=== PATIENT | female | born 1960 | race Caucasian/White ===

== ENCOUNTER → 2024-01-22 06:34 | Outpatient (REF) | payer BC, SELFPAY | LOC: RAD 06:34 | PROVIDERS: ATTENDING PHYSICIAN Nurse Practitioner Family; FAMILY PHYSICIAN Physician Assistant Medical | DX: K76.89 Other specified diseases of liver (principal) | CPT/HCPCS: 74177; Q9967 ==

== ENCOUNTER 2024-03-22 12:59 | Emergency (ER) | payer BC, SELFPAY ==
[2024-03-22 13:03] VITALS: BP 157/99; BMI 28.3
[2024-03-22 13:53] LABS: % Basophils 0.3 % (0-2); % Eosinophils 1.2 % (0-6); % Immature Granulocytes 0.6 % (0-0.5); % Lymphocytes 20.7 % (20.5-51.1); % Monocytes 9.2 % (1.7-9.3); Absolute Eosinophils 0.1 10^3/uL (0-0.7); Absolute Lymphocytes 1.4 10^3/uL (1.2-3.4); Absolute Monocytes 0.6 10^3/uL (0.1-0.6); Absolute Neutrophils 4.6 10^3/uL (1.4-6.5); Hematocrit 36.4 % (37.0-47.0); Hemoglobin 12.7 g/dL (12.0-16.0); Mean Corp Hgb Conc. 34.9 g/dL (33.0-37.0); Mean Corpuscular Hgb 30.2 pg (27.0-31.0); Mean Corpuscular Volume 86.5 fL (81.0-99.0); Mean Platelet Volume 10.2 fL (7.4-10.4); Nucleated Red Blood Cells % 0 %; Platelet Count 194 10^3/uL (130-400); Red Blood Cell Count 4.21 10^6/uL (4.20-5.40); Red Cell Dist. Width 12.8 % (11.5-14.5); White Blood Cell Count 6.7 10^3/uL (4.8-10.8)
[2024-03-22 13:55] LABS: ALT (SGPT) 49 U/L (0-35); AST (SGOT) 51 U/L (14-36); Albumin 4.5 g/dl (3.5-5.0); Alkaline Phosphatase 70 U/L (38-126); Blood Urea Nitrogen 14 mg/dl (7-17); Calcium 9.6 mg/dl (8.4-10.2); Carbon Dioxide 23 mmol/L (22-30); Chloride 106 mmol/L (98-107); Estimated Creatinine Clearance 61 ml/min; Glucose 93 mg/dl (70-99); Potassium 4.1 mmol/L (3.5-5.1); Sodium 138 mmol/L (135-145); Total Bilirubin 0.8 mg/dl (0.2-1.3); eGFR > 60.00
[2024-03-22 14:05] LABS: Troponin I < 0.012 ng/ml
[2024-03-22 14:10] LABS: COVID-19 Antigen Negative (Negative)
--- NOTE | 2024-03-22 14:50 | ED.GENMED ---
History of Present Illness
<Shelia Ayon PA-C - Last Filed: 03/22/24 21:38>
General
Chief Complaint: Cold/Flu/URI Symptoms
Source: patient
Exam Limitations: none
Time Seen by Provider: 03/22/24 14:50
Nursing documentation reviewed up to this point in time: agreed with
History of Present Illness
History of Present Illness:
This 64-year-old female with past medical history of giant cell arteritis, GERD, hypertension presenting the emergency department today with multiple complains. Patient reports that she has a history of giant cell arteritis and has been
experiencing bilateral temporal headaches recently as well as blurry vision. Patient states that her eyes feel fatigued. Patient states that she currently takes Actemra for her GCA. Patient states that she used to be on steroids for this condition
but has not had a course of steroids since October 2023. Patient also complains of shortness of breath for the past few weeks. Patient states that the shortness of breath is not exacerbated by exertion. She denies chest pain. Patient also states
that she feels as though she has had many episodes the past 2 weeks where she has felt hot and diaphoretic. Patient states that she did take her temperature at home and she did not have a fever. Patient denies coughing, sore throat. Patient
denies sick contacts. Patient denies any nausea or vomiting, abdominal pain. Patient follows with Dr. Pandya for rheumatology. Patient also notes significant urinary frequency recently and notes that she gets recurrent UTIs and is requesting a
urinalysis today. Patient denies any burning with urination, any hematuria, any flank parker.
Past History
<Shelia Ayon PA-C - Last Filed: 03/22/24 21:38>
Past History
ED Past Medical History: GERD and HTN
ED Past Surgical History: Gynecological and Tonsilectomy
Social History
Tobacco: Non-smoker
Alcohol: Occasional
Personal:
Living: with family
Employment: Employed
Family History
Family History: Hypertension
Review of Systems
<Shelia Ayon PA-C - Last Filed: 03/22/24 21:38>
Review of Systems
All Other Systems: ROS reviewed and negative except as documented in HPI and ROS
Phy Exam
<Shelia Ayon PA-C - Last Filed: 03/22/24 21:38>
Physical Exam
Physical Exam:
General: Patient is well appearing and in no acute distress; non-toxic
Skin: Warm and dry, no rashes or lesions
Head: Normocephalic, atraumatic. No temporal artery tenderness bilaterally.
Eyes: Sclera non-icteric. EOMs intact. PERRLA. No scleral injection bilaterally. Visual acuity 20/25 bilaterally with corrective glasses. Visual field testing intact bilaterally.
Cardiac: Regular rate and rhythm no murmurs
Peripheral Vascular: No lower extremity swelling or edema, no erythema
Pulm: Normal respiratory effort, no wheezes, rales, rhonchi
Abdomen: No abdominal tenderness to palpation
Neuro: CN II-XII intact, no focal neurologic deficits. Normal finger-nose, heel white testing.
Psychiatric: Appropriate mood and affect.
Course
<Shelia Ayon PA-C - Last Filed: 03/22/24 21:38>
Orders/Labs/Results
Orders:
Orders
03/22/24 13:07
Electrocardiogram (*1) Urgent
Reason for Study: Chest Pain
EKG- Treatment ONCE
CXR2 [CR Chest - 2 Views ] Urgent
Comment:
Reason For Exam: pain
03/22/24 13:19
C-Reactive Protein Urgent
Comment: ADD ON
COVID-19 Antigen Urgent
Source: Nasal Swab
Complete Blood Count/With Diff Urgent
Comprehensive Metabolic Panel Urgent
Erythrocyte Sed Rate Urgent
Comment: ADD ON
Troponin I Urgent
Influenza A+B Rapid Molecular Urgent
MOHINI Source: Nasal Swab
Specimen Description:
03/22/24 15:07
Add On- LAB Urgent
Tests Added?: CRP and ESR
03/22/24 17:27
Urinalysis Reflex To Culture Urgent
Date Specimen was Collected: 03/22/24
Time Specimen was Collected: 17:16
03/22/24 17:32
Cetirizine HCl [Zyrtec] 10 mg PO NOW STA
Abnormal Lab Results
03/22/24
13:19
Hct 36.4 L %
(37.0-47.0)
Immature Gran % 0.6 H %
(0-0.5)
AST 51 H U/L
(14-36)
ALT 49 H U/L
(0-35)
03/22/24 13:19
03/22/24 13:19
Vital Signs
Initial and Last Documented VS:
Initial Vital Signs
Temp Pulse Resp BP Pulse Ox
98.7 F 112 24 157/99 98
03/22/24 13:03 03/22/24 13:03 03/22/24 13:03 03/22/24 13:03 03/22/24 13:03
Last Documented Vital Signs
Temp Pulse Resp BP Pulse Ox
98.5 F 90 18 140/90 99
03/22/24 18:24 03/22/24 18:24 03/22/24 18:24 03/22/24 18:24 03/22/24 18:24
<Diony Levy, DO - Last Filed: 03/22/24 17:28>
Orders/Labs/Results
Orders:
Orders
03/22/24 13:07
Electrocardiogram (*1) Urgent
Reason for Study: Chest Pain
EKG- Treatment ONCE
CXR2 [CR Chest - 2 Views ] Urgent
Comment:
Reason For Exam: pain
03/22/24 13:19
C-Reactive Protein Urgent
Comment: ADD ON
COVID-19 Antigen Urgent
Source: Nasal Swab
Complete Blood Count/With Diff Urgent
Comprehensive Metabolic Panel Urgent
Erythrocyte Sed Rate Urgent
Comment: ADD ON
Troponin I Urgent
Influenza A+B Rapid Molecular Urgent
MOHINI Source: Nasal Swab
Specimen Description:
03/22/24 15:07
Add On- LAB Urgent
Tests Added?: CRP and ESR
03/22/24 17:27
Urinalysis Reflex To Culture Urgent
Date Specimen was Collected: 03/22/24
Time Specimen was Collected: 17:16
03/22/24 17:32
Cetirizine HCl [Zyrtec] 10 mg PO NOW STA
Abnormal Lab Results
03/22/24
13:19
Hct 36.4 L %
(37.0-47.0)
Immature Gran % 0.6 H %
(0-0.5)
AST 51 H U/L
(14-36)
ALT 49 H U/L
(0-35)
03/22/24 13:19
03/22/24 13:19
Vital Signs
Initial and Last Documented VS:
Initial Vital Signs
Temp Pulse Resp BP Pulse Ox
98.7 F 112 24 157/99 98
03/22/24 13:03 03/22/24 13:03 03/22/24 13:03 03/22/24 13:03 03/22/24 13:03
Last Documented Vital Signs
Temp Pulse Resp BP Pulse Ox
98.5 F 90 18 140/90 99
03/22/24 18:24 03/22/24 18:24 03/22/24 18:24 03/22/24 18:24 03/22/24 18:24
<Shelia Ayon PA-C - Last Filed: 03/22/24 21:38>
MDM/Problems Addressed
Differential Diagnosis Includes:
ddx include COVID-19 infection, pneumonia, GCA flair, tension headache, cluster headache, complex migraine
MDM/Problems Addressed:
Headache, blurry vision, shortness of breath:
This 64-year-old female with past medical history of giant cell arteritis, GERD, hypertension presenting the emergency department today with multiple complains. Patient reports that she has a history of giant cell arteritis and has been
experiencing bilateral temporal headaches recently as well as blurry vision. Patient feels like the headache is a bit different character than her GCA headaches, however she does feel it in the temporal areas. Patient states that her eyes feel
fatigued. Patient also complains of shortness of breath for the past few weeks. Here in the emergency department, she is well-appearing on exam, she does not have any temporal artery tenderness, her visual blake are intact, she her visual acuity
is 20/25 bilaterally with corrective lenses, and her ESR and CRP are within normal limits. Urinalysis is negative for infection. I reached out to pin chaser on-call who reports that considering patient's inflammatory markers are negative,
highly unlikely that this is a flare of GCA, however considering patient's history and considering her visual changes, rheumatology recommended covering with 3 mg of prednisone for a few days. Patient in agreement with plan. Patient will follow-up
with her pin chaser next week.
Chronic conditions affecting care:
oligive syndrome, migraine disorder, GCA
Acute Exacerbation and/or Progression of Chronic Illness:
GCA +/-
<Shelia Ayon PA-C - Last Filed: 03/22/24 21:38>
*Pulse Oximetry
Patient hypoxic: no
*Critical Care Note
Total Time (30-74mins, 75-104mins- exclusive of procedures): Not Applicable
Data Reviewed
Review of Other/Old Records Reveals: Records (Reviewed ER physician documentation from 04/23/2020 4-year-old patient was seen for headache)
Source: patient and records
Prescriptions/Medications Considered But Not Given:
considered medication for pain but patient states that she is somewhat comfortable at this time
<Shelia Ayon PA-C - Last Filed: 03/22/24 21:38>
Patient Management
Escalation/DeEscalation of care consider admission/obs:
Patient stable for discharge.
ED Attending Note
<Shelia Ayon PA-C - Last Filed: 03/22/24 21:38>
-
Portions of this chart may have been created with voice recognition software.� Occasional wrong word or��sound alike� substitutions may have occurred due to the inherent limitations of voice recognition software.
<Diony Levy DO - Last Filed: 03/22/24 17:28>
ED Attending Note
Patient seen and examined by attending physician: Yes
I performed the substantive portion of visit, reviewed & personally made and approve the management plan that is documented in note by myself or NALINI.: Yes
ED Attending Note:
I have seen and evaluated the patient with a [id number] encounter. I have spoken to the advance practicer provider and involved in the medical history, the physical exam, medical decision making.
Evaluation and management service: agree unless noted differently below.
Results interpretation: agree unless noted differently below.
Focused HPI: 64-year-old female presenting with mild headache, generalized weakness and mild visual complaints. Patient has a history of temporal arteritis. Although patient states her symptoms are much different and much milder than her prior
temporal arteritis flares, she wanted to get checked out to make sure she is not having a flareup. Patient is very hesitant about restarting steroids
Physical exam: Sitting in bed comfortably. EOMI. Lungs clear. No significant temporal artery discomfort
Medical Decision Making: Patient acknowledges that she was initially concerned this could be temporal arteritis. Once hearing that her ESR was normal, patient does not believe this is a temporal arteritis flareup. She believes she is having a
migraine. Will get rheumatology input
Discharge Plan
Departure
Patient Disposition: Home (Routine Discharge)
Date of Disposition: 03/22/24
Time of Disposition: 18:00
Patient with high blood pressure during this ER visit?: Yes
Condition: Good
Discharge Problem:
Acute tension headache, GCA (giant cell arteritis)
Instructions: Headache, Adult ED
Prescriptions:
New
prednisone 10 mg tablet
30 mg PO DAILY 4 Days Qty: 12 0RF
No Action
pantoprazole 40 MG tablet,delayed release (DR/EC)
40 mg PO DAILYPRN PRN (Reason: reflux)
losartan 25 mg Tablet
50 mg PO QPM
simvastatin 10 mg Tablet
10 mg PO DAILY
cranberry extract [Ellura] 200 mg Capsule
200 mg PO DAILY
prochlorperazine maleate [Compazine] 10 mg tablet
10 mg PO Q8H Qty: 10 0RF
Referrals:
Kiara Yoon PA [Family Provider] -
Activity Restrictions/Additional Instructions:
Starting tomorrow, please take 30 mg of prednisone once daily for 4 days. (This will likely come as 10 mg tablets--so you would need to take three tablets per day).
Please return to the emergency department should she experience acute visual loss, acute worsening of your headache, chest pain, dizziness, lightheadedness, or any other signs or symptoms concerning to you.
Please call your pin chaser office to schedule follow-up appointment.
Interventions
Interventions:
*Risk Screen - Suicide Last Done: 03/22/24 13:03
*Neglect/Abuse Screening Last Done: 03/22/24 13:03
*Nursing Disposition Last Done: 03/22/24 18:27
ED- Pulmonary Assessment Last Done: 03/22/24 15:57
Discharge Date and Time
Discharge Date/Time: 03/22/24 18:32
Print Language: ERITREAN
[2024-03-22 16:59] LABS: Erythrocyte Sed Rate 9 mm/hour (0-20)
[2024-03-22 17:43] LABS: Urine Albumin Negative (Neg - Trace); Urine Bilirubin Negative (Negative); Urine Character Clear (Clear); Urine Color Yellow; Urine Glucose Negative (Negative); Urine Ketone Negative (Negative); Urine Leukocyte Negative (Negative); Urine Nitrite Negative (Negative); Urine Occult Blood Negative (Negative); Urine Urobilinogen Negative (Neg - 1+)
[2024-03-22 17:53] LABS: C-Reactive Protein < 5.00 mg/L (0.0-10.00)
[2024-03-22 18:24] VITALS: BP 140/90
== END 2024-03-22 18:32 | disposition home or self-care (01) ==
LOC: EMR 12:59
PROVIDERS: EMERGENCY PHYSICIAN Student in an Organized Health Care Education/Training Program; FAMILY PHYSICIAN Physician Assistant Medical
DX: G44.209 Tension-type headache, unspecified, not intractable (principal); M31.6 Other giant cell arteritis; R53.1 Weakness; R06.02 Shortness of breath; R35.0 Frequency of micturition; Z11.52 Encounter for screening for COVID-19; K21.9 Gastro-esophageal reflux disease without esophagitis; I10 Essential (primary) hypertension; Z87.440 Personal history of urinary (tract) infections; Z88.1 Allergy status to other antibiotic agents; Z88.8 Allergy status to other drugs, medicaments and biological substances
CPT/HCPCS: 99283; 71046; 80053; 81003; 84484; 85025; 85652; 86140; 87502; 87811; 93005

== ENCOUNTER → 2024-05-13 08:48 | Outpatient (REF) | payer BC, SELFPAY | LOC: RAD 08:48 | PROVIDERS: ATTENDING PHYSICIAN Internal Medicine Cardiovascular Disease; FAMILY PHYSICIAN Physician Assistant Medical | DX: R06.09 Other forms of dyspnea (principal) | CPT/HCPCS: 71046 ==

== ENCOUNTER → 2024-05-22 07:13 | Outpatient (REF) | payer BC, SELFPAY | LOC: RCS 07:13 | PROVIDERS: ATTENDING PHYSICIAN Internal Medicine Cardiovascular Disease; FAMILY PHYSICIAN Physician Assistant Medical | DX: R06.09 Other forms of dyspnea (principal) | CPT/HCPCS: 93306 ==

== ENCOUNTER → 2024-06-06 07:46 | Outpatient (REF) | payer BC, SELFPAY | LOC: RCS 07:46 | PROVIDERS: ATTENDING PHYSICIAN Internal Medicine Cardiovascular Disease; FAMILY PHYSICIAN Physician Assistant Medical | DX: R06.09 Other forms of dyspnea (principal) | CPT/HCPCS: 93017; 93350 ==

== ENCOUNTER → 2024-06-23 07:19 | Outpatient (REF) | payer BC, SELFPAY | LOC: RAD 07:19 | PROVIDERS: ATTENDING PHYSICIAN Physician Assistant; FAMILY PHYSICIAN Physician Assistant Medical | DX: M81.0 Age-related osteoporosis without current pathological fracture (principal) | CPT/HCPCS: 77080 ==

== ENCOUNTER → 2024-07-05 07:10 | Outpatient (REF) | payer BC, SELFPAY | LOC: WDC 07:10 | PROVIDERS: ATTENDING PHYSICIAN Obstetrics & Gynecology Gynecology; FAMILY PHYSICIAN Physician Assistant Medical | DX: Z12.31 Encounter for screening mammogram for malignant neoplasm of breast (principal) | CPT/HCPCS: 77063; 77067 ==

== ENCOUNTER 2024-11-10 06:33 | Day surgery (SDC) | payer BC, SELFPAY ==
[2024-10-24 06:27] VITALS: BMI 27.4
[2024-10-24 08:11] LABS: Hematocrit 35.5 % (37.0-47.0); Hemoglobin 11.6 g/dL (12.0-16.0); Mean Corp Hgb Conc. 32.7 g/dL (33.0-37.0); Mean Corpuscular Hgb 27.9 pg (27.0-31.0); Mean Corpuscular Volume 85.3 fL (81.0-99.0); Mean Platelet Volume 10.4 fL (7.4-10.4); Platelet Count 260 10^3/uL (130-400); Red Blood Cell Count 4.16 10^6/uL (4.20-5.40); Red Cell Dist. Width 13.2 % (11.5-14.5); White Blood Cell Count 5.5 10^3/uL (4.8-10.8)
[2024-10-24 08:18] LABS: Blood Urea Nitrogen 19 mg/dl (7-17); Calcium 8.6 mg/dl (8.4-10.2); Carbon Dioxide 26 mmol/L (22-30); Chloride 105 mmol/L (98-107); Estimated Creatinine Clearance 73 ml/min; Glucose 97 mg/dl (70-99); Potassium 4.3 mmol/L (3.5-5.1); Sodium 138 mmol/L (135-145); eGFR > 60.00
[2024-11-10] VITALS (16 sets, daily range): BP systolic 113–153; BP diastolic 68–91; BMI 27.4; BMI 29.4
--- NOTE | 2024-11-10 07:07 | HP.FOC2 ---
Focused History & Physical
Chief Complaint
HPI:
Chief Complaint: Incisional hernias, liver cyst
HPI / Indication for Planned Procedure: Patient is a 64-year-old female with a past abdominal surgical history including RAL hysterectomy with right salpingo-oophorectomy and lysis of adhesions, RAL sacrocolpopexy, posterior colporrhaphy and
perineoplasty 2021, ex lap flexible sigmoidoscopy, colonic decompression through mid transverse colon colotomy for postoperative ileus/Leighann's. She is taking note of swelling along the region of her surgical scar in the central abdomen. Some
discomfort and awareness of her hernias being present but no pain. Also to large liver cyst that she has been following expectantly.
Relevant Past Medical History: Other (Hypertension, history of aspiration pneumonia, GERD, bilateral knee arthritis, history of [place] syndrome, giant cell arteritis, osteoporosis, history of UTIs)
Relevant Social History: Negative
Relevant Family History: Negative
Relevant Past Surgical History: Positive for (Tubal ligation, tonsils, RAL ALEXIA/BSO, RAL sacrocolpopexy, ex lap colonic decompression/sigmoidoscopy, temporal artery biopsy)
Review of Systems
Review of Pertinent Systems: All Systems Negative
Medication
See Medication form for detailed medications: Yes
Medication List (including Herbals & OTC):
losartan 25 mg tablet 50 mg PO QPM 08/22/22
amitriptyline 25 mg tablet 25 mg PO HS 11/03/24
apple cider vinegar 1 dose PO DAILY 11/03/24
cranberry extract 200 mg capsule (Ellura) 200 mg PO DAILY 11/03/24
denosumab 60 mg/mL subcutaneous syringe (Prolia) 60 mg SC [id number] 11/03/24
estradiol 0.01% (0.1 mg/gram) vaginal cream 1 appful vaginal .2 TIMES A WEEK 11/03/24
guar gum 1 packet PO HS 11/03/24
omeprazole 20 mg tablet,delayed release 20 mg PO DAILY 11/03/24
pitavastatin calcium 1 mg tablet (Livalo) 1 mg PO QPM 11/03/24
Medications Reviewed: Yes
Allergies and Reactions
Patient has Allergies: Yes
Noted Allergies and Reactions:
Allergy/AdvReac Type Severity Reaction Status Date / Time
levofloxacin [From Levaquin] Allergy Sister has Verified 11/03/24 08:17
severe
reaction
to levaquin
nitrofurantoin Allergy Anaphylaxis Verified 11/03/24 08:17
[From Macrobid]
nitrofurantoin Allergy Anaphylaxis Verified 11/03/24 08:17
macrocrystalline
[From Macrobid]
amoxicillin [From Augmentin] AdvReac diarrhea Verified 11/03/24 08:17
clavulanic acid AdvReac DIARRHEA Verified 11/03/24 08:17
[From Augmentin]
Pertinent Physical Exam
All Other Systems: Negative
Head/Neck: Normal
Lungs: Normal
Heart: Normal
Abdomen: Other (Midline laparotomy scar with multiple reducible midline incisional hernias predominantly around the umbilicus and superiorly. Multiple robotic surgical scars well-healed. Protuberant, softly distended abdomen.)
Extremities: Normal
Neurological: Normal
Diagnosis / Assessment
64-year-old female presenting for scheduled operative correction incisional hernias, and possible fenestration of liver cyst
Plan / Procedure
Robotic assisted laparoscopic repair incisional hernias with mesh, possible fenestration of liver cyst
Anesthesia/Sedation to be done by Anesthesia Provider: Yes
[2024-11-10] MEDS: ENTEREG 12 MG PO (10:48)
[2024-11-10] MEDS: TYLENOL 1000 MG PO (10:48)
--- NOTE | 2024-11-10 10:55 | W.SUR.PREOP ---
Pre-Operative Surgical Note
-
I have examined this patient prior to the performance of the scheduled procedure.
The patient's condition is unchanged from the time of the current History and
Physical and the patient is able to undergo the scheduled procedure.
Confirm with patient; anticipated plan to follow liver cyst expectantly rather than cyst fenestration today.
[2024-11-10] MEDS: NORMOSOL-R/PLASMALYTE-A 1000 IV (11:18)
--- NOTE | 2024-11-10 16:22 | W.IMMPOSTOP ---
Addendum entered and electronically signed by Robert Panda MD 11/10/24 17:10:
#[id number]
Original Note:
Surgical Immed Post Op Note
-
Primary Surgeon: Robert Panda MD
Assisting Surgeon: Divine López PA-C
Pre-op Diagnosis: Incisional hernias
Post-op Diagnosis: Incisional hernias -11 cm maximal length
Abdominal wall adhesions -extending typical/expected operative time by 60 minutes
Procedure Performed: Robotic assisted laparoscopic lysis of adhesions
Robotic assisted laparoscopic repair incisional hernias with mesh; Ventralight ST 20 cm x 15 cm, IPUM+
Anesthesia Type: GETA +0.25% Marcaine
Specimen / Cultures: None
Estimated Blood Loss: 12 mL
Complications: None immediate
Operative Findings: Extensive abdominal wall adhesions requiring adhesiolysis to incisional hernia repair (small bowel adhesions, transverse colon adhesions, omental adhesions). Operative time extended by 60 minutes beyond typical expectation of
intra-abdominal adhesions for this procedure. Multiple midline incisional hernia defects spanning from umbilicus to epigastrium along prior laparotomy incisional scar. 11 cm in maximal vertical length and 4 cm in maximal width. Closure of midline
fascia with #1 PDS STRATAFIX and oversewn with 0 PDS STRATAFIX. Intraperitoneal underlay mesh repair Ventralight ST 20 cm x 15 cm secured circumferentially and centrally with running continuous 2-0 PDS STRATAFIX.
The assistance of Divine López PA-C was required due to the complexity of the procedure. During the procedure Divine López PA-C assisted with port placement, robotic instrumentation and suture material exchanges, and closure of the surgical incision
sites. I was present for the entirety of the operative procedure.
[2024-11-10] MEDS: DILAUDID 0.25 MG IV (17:00)
[2024-11-10] MEDS: DILAUDID 0.5 MG IV (17:15)
[2024-11-10] MEDS: OFIRMEV 100 IV ×2 (17:35→22:38)
[2024-11-10] MEDS: NSS 1000 IV (18:00)
[2024-11-10] MEDS: COZAAR PO (20:00)
[2024-11-10] MEDS: ZOFRAN 4 MG IV (20:31)
[2024-11-10] MEDS: ELAVIL 25 MG PO (22:38)
--- NOTE | 2024-11-10 23:56 | TRANSFER ---
Pt arrived from PACU in bed s/p RAL DUGLAS incisional hernia w mesh. AAOx3, able to make all needs known, drowsy and nauseous. VS WNL. x5 lap and a port site to the ABD XIMENA w surgical glue, clean and dry. indwelling catheter draining clear yellow
urine. Spouse at the bedside. Call briceño within reach, bed in lowest position.
[2024-11-11 03:00] VITALS: BP 140/83
[2024-11-11] MEDS: NSS 1000 IV ×2 (03:11→14:45)
[2024-11-11] MEDS: OFIRMEV 100 IV ×2 (04:55→11:50)
[2024-11-11 07:26] VITALS: BP 140/83
--- NOTE | 2024-11-11 07:26 | W.PN.GS2 ---
Today's Communication / Plan
-
`
Assessment / Plan
-
Assessment: 64 y/o male POD#1 s/p RAL DUGLAS and incisional hernia (11cm) repair with mesh (IPUM+)
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
AFVSS
AM labs pending
doing well this AM
Plan: multimodal pain control options and limit narcotic use as tolerated
full liquid diet
Entereg until signs of PO GI recovery given prior h/o ogilvies
OOBTC/ambulate/encourage IS use
elizabeth out
home meds
heparin, SCDs, ambulation for VTEp
protonix for GIp - pt on PPI at home
Subjective Data
-
Date of Service: November 11, 2024
pt seen and examined
post op pain controlled, minimal narcotics overnight
no flatus/BM; + belch
no nausea this AM
Objective Data
-
Intake and Output
11/10/24 11/11/24 11/12/24
06:59 06:59 06:59
Intake Total 1580 / 1580
Output Total 900 / 900
Balance 680 / 680
Intake:
Oral fluids 180 / 180
IV fluids (Total) 1200 / 1200
normosol 300 / 300
IV piggybacks 200 / 200
Output:
Emesis 125 / 125
Urine, Elizabeth 775 / 775
Vital Signs
Temp Pulse Resp BP Pulse Ox
97.9 F 98 22 140/83 100
11/11/24 03:00 11/11/24 03:00 11/11/24 03:00 11/11/24 03:00 11/11/24 03:00
Calcium 8.6 mg/dl (8.4-10.2) 10/24/24 06:32
Physical Exam
-
NAD AAOx3
ABD: softly protuberant, ND, mild TTP
incisions with glue dressings, no ecchymosis, no drainage
abd binder
Patient has a elizabeth catheter: No
[2024-11-11 08:08] LABS: Hemoglobin 10.9 g/dL (12.0-16.0); Mean Corp Hgb Conc. 32.1 g/dL (33.0-37.0); Mean Corpuscular Hgb 27.7 pg (27.0-31.0); Mean Corpuscular Volume 86.3 fL (81.0-99.0); Mean Platelet Volume 9.7 fL (7.4-10.4); Platelet Count 276 10^3/uL (130-400); Red Blood Cell Count 3.94 10^6/uL (4.20-5.40); Red Cell Dist. Width 13.2 % (11.5-14.5); White Blood Cell Count 12.7 10^3/uL (4.8-10.8)
[2024-11-11] MEDS: PROTONIX IV 40 MG IV (08:43)
[2024-11-11] MEDS: ENTEREG 12 MG PO (08:43)
[2024-11-11] MEDS: NSS (PRESERVATIVE FREE) 10 ML IV (08:44)
[2024-11-11] MEDS: HEPARIN 5000 UNITS SC ×2 (08:44→21:29)
[2024-11-11 08:51] LABS: Blood Urea Nitrogen 16 mg/dl (7-17); Calcium 7.8 mg/dl (8.4-10.2); Carbon Dioxide 22 mmol/L (22-30); Chloride 106 mmol/L (98-107); Estimated Creatinine Clearance 75 ml/min; Glucose 109 mg/dl (70-99); Potassium 4.3 mmol/L (3.5-5.1); Sodium 138 mmol/L (135-145); eGFR > 60.00
--- NOTE | 2024-11-11 10:30 | CM ---
Reviewed the chart notes and spoke with the patient and spouse at the bedside. The patient resides with her spouse in a two story home with three steps to enter. The patient reports no DME/SNF in the past. Patient has had [facility] in the past.
Patient confirmed her pharmacy of choice is the [facility]. CM continues to be available to patient/family and is monitoring medical plan for needs at discharge.
Plan: Discharge to home when medically stable. No needs anticipated. Spouse to provide transportation.
[2024-11-11 11:36] VITALS: BP 126/71
[2024-11-11 15:47] VITALS: BP 132/64
[2024-11-11 17:49] VITALS: BP 139/76
[2024-11-11] MEDS: COZAAR 50 MG PO (18:15)
[2024-11-11] MEDS: ELAVIL 25 MG PO (21:35)
[2024-11-11 23:00] VITALS: BP 166/99
[2024-11-11] MEDS: DILAUDID 0.5 MG IV (23:07)
[2024-11-12] MEDS: NSS 1000 IV (00:49)
[2024-11-12] MEDS: DILAUDID 1 MG IV (05:14)
--- NOTE | 2024-11-12 07:17 | W.PN.GS2 ---
Today's Communication / Plan
-
`
Assessment / Plan
-
Assessment: 64 y/o male POD#2 s/p RAL DUGLAS and incisional hernia (11cm) repair with mesh (IPUM+)
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
AFVSS
AM labs pending
mild nausea but also had BMs yesterday - Entereg was stopped with loose stools
Plan: multimodal pain control options and limit narcotic use as tolerated - started toradol ACT this AM
low residue diet
stop IVFs
OOBTC/ambulate/encourage IS use
home meds
heparin, SCDs, ambulation for VTEp
protonix for GIp - pt on PPI at home
possible d/c home in PM if adequate pain control, ambulating, nausea controlled
Subjective Data
-
Date of Service: November 12, 2024
pt seen and examined
reports avoiding narcotic yesterday to point that was unable to get OOB yesterday evening and had difficulty with pain control and was tense/anxious
Dilaudid overnight alleviated pain and feeling better this AM
intermittent nausea
+loose BMs yesterday
Objective Data
-
Intake and Output
11/11/24 11/12/24 11/13/24
06:59 06:59 06:59
Intake Total 1580 / 1580 4600 / 4600
Output Total 900 / 900 525 / 525
Balance 680 / 680 4075 / 4075
Intake:
Oral fluids 180 / 180 2580 / 2580
IV fluids (Total) 1200 / 1200 1920 / 1920
normosol 300 / 300
IV piggybacks 200 / 200 100 / 100
Output:
Emesis 125 / 125
Urine, Mejia 775 / 775
Urine, Voided 525 / 525
Other:
Number of approximated MODERATE 1
amounts of urine
Vital Signs
Temp Pulse Resp BP Pulse Ox
98.7 F 116 21 166/99 98
11/11/24 23:00 11/11/24 23:00 11/11/24 23:00 11/11/24 23:00 11/11/24 23:00
Calcium 7.8 mg/dl (8.4-10.2) L 11/11/24 07:21
Physical Exam
-
NAD AAOx3
ABD: softly distended, moderate TTP around midline and lateral abdomen
incision sites with glue dressings
[2024-11-12 07:40] VITALS: BP 147/88
[2024-11-12 07:49] LABS: Hematocrit 35.5 % (37.0-47.0); Hemoglobin 11.2 g/dL (12.0-16.0); Mean Corp Hgb Conc. 31.5 g/dL (33.0-37.0); Mean Corpuscular Hgb 27.5 pg (27.0-31.0); Mean Corpuscular Volume 87.2 fL (81.0-99.0); Mean Platelet Volume 9.8 fL (7.4-10.4); Platelet Count 280 10^3/uL (130-400); Red Blood Cell Count 4.07 10^6/uL (4.20-5.40); Red Cell Dist. Width 13.5 % (11.5-14.5)
[2024-11-12] MEDS: HEPARIN 5000 UNITS SC (08:25)
[2024-11-12] MEDS: NSS (PRESERVATIVE FREE) 10 ML IV (08:25)
[2024-11-12] MEDS: PROTONIX IV 40 MG IV (08:25)
[2024-11-12 08:50] LABS: Blood Urea Nitrogen 11 mg/dl (7-17); Calcium 8.5 mg/dl (8.4-10.2); Carbon Dioxide 22 mmol/L (22-30); Chloride 105 mmol/L (98-107); Estimated Creatinine Clearance 75 ml/min; Glucose 145 mg/dl (70-99); Potassium 3.9 mmol/L (3.5-5.1); Sodium 140 mmol/L (135-145); eGFR > 60.00
[2024-11-12] MEDS: TORADOL 10 MG IV ×2 (09:09→15:50)
--- NOTE | 2024-11-12 10:34 | CM ---
Reviewed the chart notes. Patient's diet advanced to low residue. CM continues to be available to patient/family and is monitoring medical plan for needs at discharge.
Plan: Discharge to home when medically stable.
[2024-11-12 13:23] VITALS: BP 135/77
--- NOTE | 2024-11-12 14:22 | W.PN.SURGUPD ---
Surgical Update
Surgical Update
pt seen and examined
feels much better after single dose of toradol this AM; pain well controlled
no nausea, and tolerated light breakfast and lunch
checked EKG for tachycardia - sinus rythm noted - suspect post op stress response as improved pain control no infectious signs or symptoms
ABD soft, minimal tenderness laterally, mild midline tenderness on palpation without R/R/G
appears stable for dc and pt preference for dc today as well
reviewed d/c instructions and care
recommended getting next dose of toradol at 3pm prior to dc
--- NOTE | 2024-11-12 14:24 | W.DS.TRANS ---
DC Summary - [facility]
-
Discharge Instructions:
Sleep Apnea Risk Low
Discharge Diagnosis/Procedures Incisional hernias. Robotic assisted
laparoscopic repair incisional hernias with mesh
and lysis of adhesions
Diet Regular,As tolerated
Additional Diets Smaller meals, easier to digest foods initially
after surgery as abdominal bloating and
distention are common for the first few days
Activity No strenuous activity
Additional Activity No lifting over 15 to 20 pounds for 6 weeks
postop. Walking, standing, stairs and routine
daily activities are all okay as tolerated.
Driving Restrictions No driving 2 to 3 days or if using narcotics
Bathing Restrictions OK to Shower
Wound Care Glue at surgical sites typically peels off in 2
to 3 weeks
Instructions:
Stand-Alone Forms:
Changes to Home Medications: No
Discharge Medications:
DC Medications w/original date entered in [facility]
losartan 25 mg tablet 50 mg PO QPM 08/22/22
amitriptyline 25 mg tablet 25 mg PO HS 11/03/24
apple cider vinegar 1 dose PO DAILY 11/03/24
cranberry extract 200 mg capsule (Ellura) 200 mg PO DAILY 11/03/24
denosumab 60 mg/mL subcutaneous syringe (Prolia) 60 mg SC [id number] 11/03/24
estradiol 0.01% (0.1 mg/gram) vaginal cream 1 appful vaginal .2 TIMES A WEEK 11/03/24
guar gum 1 packet PO HS 11/03/24
omeprazole 20 mg tablet,delayed release 20 mg PO DAILY 11/03/24
pitavastatin calcium 1 mg tablet (Livalo) 1 mg PO QPM 11/03/24
acetaminophen 500 mg tablet (Tylenol Extra Strength) 1,000 mg (2 x 500 mg) PO Q6HPRN PRN mild pain #1 tab 11/12/24
naproxen sodium 220 mg capsule (Aleve) 440 mg (2 x 220 mg) PO BID PRN moderat pain #1 cap 11/12/24
polyethylene glycol 3350 17 gram/dose oral powder (Miralax) 4 g PO DAILY PRN Constipation #119 grams 11/12/24
tramadol 50 mg tablet 25 - 50 mg (0.5 - 1 x 50 mg) PO Q6HPRN PRN severe pain/breakthrough pain #10 tabs 11/12/24
Home Medication Changes
Pending Results: No
[2024-11-12 15:15] VITALS: BP 149/79
== END 2024-11-12 17:19 | disposition home or self-care (01) ==
LOC: SDS 06:33
PROVIDERS: ATTENDING PHYSICIAN Surgery; FAMILY PHYSICIAN Physician Assistant Medical
DX: K43.2 Incisional hernia without obstruction or gangrene (principal); K66.0 Peritoneal adhesions (postprocedural) (postinfection)
CPT/HCPCS: 49595; 49329; 36415; 80048; 85027; 87070; 87147; 93005; C1781

== ENCOUNTER → 2024-12-02 07:38 | Outpatient (REF) | payer BC, SELFPAY | LOC: WDC 07:38 | PROVIDERS: ATTENDING PHYSICIAN Obstetrics & Gynecology Gynecology; FAMILY PHYSICIAN Physician Assistant Medical | DX: R92.30 Dense breasts, unspecified (principal) | CPT/HCPCS: 76641 ==

== ENCOUNTER → 2025-04-09 12:26 | Outpatient (REF) | payer BC, SELFPAY ==
[2025-04-09 12:50] VITALS: BP 144/74; BP_SYST 88
[2025-04-09 13:40] VITALS: BP 144/78; BP_SYST 72
[2025-04-09 13:45] VITALS: BP 141/75; BP_SYST 72
[2025-04-09 14:00] VITALS: BP 147/81; BP_SYST 74
[2025-04-09 14:15] VITALS: BP 137/73
[2025-04-09 14:48] VITALS: BP 145/71
== END ==
LOC: RADI 12:26
PROVIDERS: ATTENDING PHYSICIAN Surgery; FAMILY PHYSICIAN Physician Assistant Medical
DX: K76.89 Other specified diseases of liver (principal)
CPT/HCPCS: 49406; 87070; 87205

== ENCOUNTER → 2025-05-18 07:13 | Outpatient (REF) | payer BC, SELFPAY | LOC: HWRAD 07:13 | PROVIDERS: ATTENDING PHYSICIAN Surgery; FAMILY PHYSICIAN Physician Assistant Medical | DX: K76.89 Other specified diseases of liver (principal) | CPT/HCPCS: 76700 ==

== ENCOUNTER → 2025-06-08 08:06 | Outpatient (REF) | payer BC, SELFPAY ==
[2025-06-08] VITALS (11 sets, daily range): BP systolic 56–168; BP diastolic 70–82
[2025-06-08] MEDS: ZOFRAN 4 MG IV (10:25)
[2025-06-08] MEDS: SUBLIMAZE 50 MCG IV ×2 (10:30→11:15)
--- NOTE | 2025-06-08 10:34 | PTCARENOTE ---
1020 Patient states having pain now in RUQ. Burning sensation, some nausea 6-[address] Scott updated. Patient reassured
--- NOTE | 2025-06-08 11:35 | PTCARENOTE ---
Addendum entered by Nathaly Lynch RN 06/08/25 11:41:
Aspirated and removed by [facility] technologist.
Original Note:
1130 60ml fluid aspirated and drain removed due to increased pain per DR Scott. Patient states once drain removed she is still 'sore' but pain better. Nausea improved.
--- NOTE | 2025-06-08 11:39 | PN.IRAD.UPD ---
Update Note - IRAD
- -
took out 60ml of dark fluid from sclerosing after 90 minutes, removed drain and dressed with primapore
== END ==
LOC: RADI 08:06
PROVIDERS: ATTENDING PHYSICIAN Surgery; FAMILY PHYSICIAN Physician Assistant Medical
DX: K76.89 Other specified diseases of liver (principal)
CPT/HCPCS: 49185; 49405; 76942; 88112; 88305; 88341; 88342; 99152; 99153

== ENCOUNTER → 2025-07-22 06:59 | Outpatient (REF) | payer BC, SELFPAY | LOC: RAD 06:59 | PROVIDERS: ATTENDING PHYSICIAN Surgery; FAMILY PHYSICIAN Physician Assistant Medical | DX: K76.89 Other specified diseases of liver (principal) | CPT/HCPCS: 76700 ==

== ENCOUNTER → 2025-07-31 14:11 | Outpatient (REF) | payer BC, SELFPAY | LOC: WDC 14:11 | PROVIDERS: ATTENDING PHYSICIAN Obstetrics & Gynecology Gynecology; FAMILY PHYSICIAN Physician Assistant Medical | DX: Z12.31 Encounter for screening mammogram for malignant neoplasm of breast (principal) | CPT/HCPCS: 77063; 77067 ==